=== PATIENT | female | born 1960 | race Two or more races ===

== ENCOUNTER 2021-09-29 18:13 | Emergency (ER) | payer OTHER ==
[~2021-09-29] VITALS: Ht 157.5 cm; Wt 136.1 kg
[2021-09-29 18:15] VITALS: BP_SYST 139
--- NOTE | 2021-09-29 18:19 | NUR ---
Patient to ER bed 04 to gown for evaluation. Side rails up.
--- NOTE | 2021-09-29 18:22 | NUR ---
Pt brought by self, A&Ox4, pt presents to ER with L knee/ L shoulder / head pain after trip and fall, pt denies taking blood thinners, no KO, skin pink and warm, respiraitons even and unlabored, will cont to monitor.
--- NOTE | 2021-09-29 18:25 | NUR ---
Dr Washington evaluating patient at bedside
--- NOTE | 2021-09-29 19:00 | NUR ---
Pt able to transfer to W/C, VSS, BS 232
[2021-09-29 21:25] VITALS: BP_SYST 139
--- NOTE | 2021-09-29 21:25 | NUR ---
Patient given written and verbal discharge instructions and verbalizes understanding. ER MD discussed with patient the results and treatment provided. Patient in stable condition. ID arm band removed. Rx of Motrin and [place] given. Patient educated on pain management and to follow up with PMD. Pain Scale 0/10 . Opportunity for questions provided and answered. Medication side effect fact sheet provided.
== END 2021-09-29 21:25 | disposition home or self-care (01) ==
LOC: SED 18:13
DX: S13.4XXA Sprain of ligaments of cervical spine, initial encounter (principal); S43.402A Unspecified sprain of left shoulder joint, initial encounter; S80.02XA Contusion of left knee, initial encounter; S09.90XA Unspecified injury of head, initial encounter; I10 Essential (primary) hypertension; E11.9 Type 2 diabetes mellitus without complications; W01.0XXA Fall on same level from slipping, tripping and stumbling without subsequent striking against object, initial encounter; Y93.89 Activity, other specified; Y92.89 Other specified places as the place of occurrence of the external cause; Y99.8 Other external cause status
CPT/HCPCS: 70450-TC; 72125-TC; 73030; 73564; 76376; 99284